=== PATIENT | male | born 1970 | race Caucasian/White ===

== ENCOUNTER 2020-03-26 15:15 | Emergency (ER) | payer MEDICAID, SELFPAY ==
[2020-03-26 15:50] VITALS: BP 113/66; PULSE 65; RESP 20; TEMP 36.9; O2SAT 99
--- NOTE | 2020-03-26 16:23 | ED.GENADULT ---
HPI - General Adult General Chief complaint: Wound/Laceration Stated complaint: abdominal pain Source: patient Mode of arrival: ambulatory Limitations: no limitations History of Present Illness HPI narrative: 50 y/o male. PMH includes: None reported. 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 Client reports to have holding the poles against his side as he was carrying them . He denies acute injury or trauma. Woke up the next day and has had worsening soreness to area since that time. Home remedies have been of sub-therapeutic relief. No fever. No groin or testicular pain. No diffuse abdominal pain,N/V/D. He reports pain is worse with coughing, sneezing, laughing , ect. No additional acute c/o upon PE. Related Data Home Medications Medication Instructions Recorded Confirmed divalproex [Depakote] 250 mg PO DAILY 03/26/20 03/26/20 Allergies Allergy/AdvReac Type Severity Reaction Status Date / Time Penicillins Allergy Severe Dyspnea / Verified 03/26/20 16:12 SOB Review of Systems Review of Systems: Narrative: CONSTITUTIONAL: Denies fever, chills, sweats. EYES: Denies visual changes, redness, discharge. ENT: Denies rhinorrhea, congestion, sore throat, otalgia. CARDIOVASCULAR: Denies chest pain, palpitations, edema. RESPIRATORY: Denies dyspnea, wheezing, cough GASTROINTESTINAL: Denies abdominal pain, nausea, vomiting, diarrhea. GENITOURINARY: Denies dysuria, hematuria, abnormal discharge SKIN: Denies rash or itching. MUSCULOSKELETAL: Denies acute back pain, joint pain, or myalgia. Positive muscle tenderness RT side. NEUROLOGIC: Denies numbness, or focal weakness. PSYCHIATRIC: Denies anxiety or depression. Exam Narrative: Exam Narrative: GENERAL: This is a well-nourished, well-developed patient, in no apparent distress. HEAD: normocephalic, atraumatic. EYES: PERRL. Sclera clear/white. Vision is grossly intact. EARS: External ears normal, auditory canals clear and without drainage, TMs normal without perforation. Hearing grossly intact. NOSE: External nose normal with no obvious nasal discharge, nares without redness, no rhinorrhea. THROAT: Mucous membranes moist, posterior pharynx clear. NECK: Neck supple, non-tender without lymphadenopathy, masses or thyromegaly. CARDIOVASCULAR: Regular rate and rhythm without murmurs, gallops, or rubs. RESPIRATORY: Clear to auscultation. Breath sounds equal bilaterally. No wheezes, rales, or rhonchi. GASTROINTESTINAL: Abdomen soft, nondistended. There is no tenderness or rebound. Bowel sounds are active. No hepato-splenomegaly, or palpable masses. No guarding. I do not appreciate and obvious hernia or deformity. Positive muscle spasm. SKIN: warm, intact with no suspicious lesions or rash, good texture and turgor. I do not appreciate any bruising to lower abdomen. NEURO: awake, alert, and oriented to person, place and time. There were no obvious focal neurologic abnormalities. Steady gait EXTREMITIES: Normal range of motion. No edema. No calf tenderness. Negative Homans sign bilaterally. BACK: Nontender without deformity or crepitance. No flank tenderness. NEURO: Alert and oriented x4, GCS 15. Cranial nerves II through XII grossly intact. No focal neurological deficits. Normal muscle strength and tone. Normal deep tendon reflexes. Negative Babinski, normal finger to nose coordination he had normal heel to wang glide. Speech is clear. Normal gait. Negative Romberg and no pronator drift. Course Course Emergency Course: OP POC, AVS, & medication instructions have been reviewed. His exam is fairly benign, and his pain is reproduced with muscular activity such as sneeze, cough, ect. Will Tx as muscular strain; however, client has been advised that if his pain is to persist or worsen, he will need to proceed immediately to the closest ED for further evaluation and abdominal imaging. He
== END 2020-03-26 16:40 | disposition home or self-care (01) ==
PROVIDERS: Emergency Provider Nurse Practitioner Adult Health
DX: S39.011A Strain of muscle, fascia and tendon of abdomen, initial encounter (principal); X50.0XXA Overexertion from strenuous movement or load, initial encounter
CPT/HCPCS: 99213; G0463

== ENCOUNTER 2020-12-13 13:17 | Emergency (ER) | payer OTHER, SELFPAY ==
--- NOTE | ~2020-12-13 | XR_ITS ---
EXAMINATION: XR wrist RT min 3V DATE: 12/13/2020 13:33 INDICATION: Right wrist pain. TECHNIQUE: 4 views of right wrist were obtained. COMPARISON: Right hand radiographs 01/27/2018 FINDINGS: Bone alignment is normal. No fracture. Joint spaces are well maintained. IMPRESSION: 1. Normal right wrist. Reviewed, dictated and finalized at location A. IMPRESSION: 1. Normal right wrist.
[2020-12-13 13:17] VITALS: BP 110/64; PULSE 63; RESP 16; TEMP 37.1; O2SAT 98
--- NOTE | 2020-12-13 13:33 | ED.UPPEXIN ---
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 Patient has had previous contusion to his right hand in 2018 with no previous fracture. Patient states that pain increases with use of his right wrist and increases with hyperextension, pain radiates to outer aspect of 5th finger and up forearm midway on ulnar region. MD complaint: injury to: right (unsure of specific injury), wrist and hand Onset (ago): week(s) (1) Other Extremity Injury: Right: hand (ulnar side) and wrist (ulnar side) Other injuries: none Handedness: right Place: other (unsure) Severity: moderate Related Data Home Medications Medication Instructions Recorded Confirmed No Home Medications 12/13/20 12/13/20 Allergies Allergy/AdvReac Type Severity Reaction Status Date / Time Penicillins Allergy Severe Dyspnea / Verified 12/13/20 13:37 SOB Review of Systems Review of Systems: CONSTITUTIONAL: Denies fever, chills, or sweats. EYES: Denies visual changes, redness, or discharge. ENT: Denies rhinorrhea, congestion, sore throat, or otalgia. CARDIOVASCULAR: Denies chest pain, palpitations, or edema. RESPIRATORY: Denies cough or dyspnea. GASTROINTESTINAL: Denies abdominal pain, nausea, vomiting, or diarrhea. GENITOURINARY: Denies dysuria or hematuria. SKIN: Denies rash or itching. MUSCULOSKELETAL: Denies back pain,positive for right wrist pain ulnar aspect, or myalgia. NEUROLOGIC: Denies headache, numbness, or weakness. PSYCHIATRIC: Denies anxiety or depression. All systems reviewed & are unremarkable except as noted in HPI and below PMFSH Past Medical History Medical History (Updated 12/13/20 @ 15:11 by Miranda Persaud NP) Gout Psoriasis Surgical History Surgical History (Updated 12/13/20 @ 15:32 by Miranda Persaud NP) No history of previous surgery Family History Family History (Updated 12/13/20 @ 15:31 by Miranda Persaud NP) Other No significant family history Social History Social History (Updated 12/13/20 @ 13:39 by Miranda Persaud NP) Smoking packs per day: 1 Smoking cigarettes per day: 20.0 Years smoked: 30 Smoking pack-years: 30.00 Smoking status: Current every day smoker Comments At time of signature, agree with nursing past medical, surgical, social and family history. There is no relevant family history pertinent to the presenting complaint Exam Narrative: GENERAL: Well-appearing, well-nourished, and in no acute distress. HEAD: Normocephalic, atraumatic. EYES: PERRLA and EOMI. ENT: Nares clear, no rhinorrhea or epistaxis. Mucous membranes moist. NECK: Supple. no lymphadenopathy CHEST: Clear to auscultation. No respiratory distress.SAO2 98% on room air HEART: Regular rate and rhythm. No murmur heard. Normal peripheral pulses. ABDOMEN: Soft, nontender, nondistended, normal active bowel sounds. EXTREMITIES: Painful range of motion to right wrist area especially with hyperextension of wrist area, Patient has pain to outside area of 5th finger right hand and some radiation of pain up outer right forearm.. No acute edema. Pulses strong to the left radial area, states some initial tingling to 5th finger right hand which has resolved, nail beds amber briskly. SKIN: Warm, dry, no rash. NEURO: No focal deficits. Alert and oriented x3. Course Vital Signs Vital signs: Vital Signs Temperature 37.1 C 12/13/20 13:17 Pulse Rate 63 12/13/20 13:17 Respiratory Rate 16 12/13/20 13:17 Blood Pres
[2020-12-13 14:28] VITALS: BP 110/64; PULSE 63; RESP 16; TEMP 37.1; O2SAT 98
== END 2020-12-13 14:00 | disposition home or self-care (01) ==
PROVIDERS: Emergency Provider Registered Nurse; PCP Nurse Practitioner Family
DX: M77.8 Other enthesopathies, not elsewhere classified (principal); F17.210 Nicotine dependence, cigarettes, uncomplicated; M10.9 Gout, unspecified; L40.9 Psoriasis, unspecified
CPT/HCPCS: 73110; 99213; G0463

== ENCOUNTER 2021-03-04 14:03 | Emergency (ER) | payer OTHER, SELFPAY ==
--- NOTE | ~2021-03-04 | XR_ITS ---
EXAMINATION: XR lumbar spine 2-3V EXAM DATE: 03/04/2021 14:44 INDICATION: Low back pain, right hip pain for 4 days. No known recent injury. TECHNIQUE: Lumber spine frontal, lateral, lateral L5-S1 projections for interpretation. There is no prior study for comparison. FINDINGS: There is mild lumbar dextrocurvature, could be positional or scoliosis. Mild to moderate l umbar disc disease L2-3, mild at the other lumbar levels. There is mild to moderate lumbar facet arth ropathy. Sacrum, sacroiliac joints, sacral arcuate lines are intact. Paraspinal soft tissue is unrema rkable. There are no bony erosions identified. There are no acute fractures identified. IMPRESSION: Mild to moderate lumbar spondylosis Reviewed, dictated and finalized at location A.
--- NOTE | ~2021-03-04 | XR_ITS ---
EXAMINATION: XR hip RT min 2V DATE: 03/04/2021 14:44 INDICATION: 4 days of nontraumatic right hip pain TECHNIQUE: Anteroposterior and frog-leg lateral views of the right hip were obtained. COMPARISON: None. FINDINGS: Alignment is normal. No fracture. Sacral arches are intact. Right hip and bilateral sacroiliac joint spaces are normal. No suspected avascular necrosis. Soft tissues are unremarkable. IMPRESSION: 1. Negative right hip radiographs. Reviewed, dictated and finalized at location A.
--- NOTE | 2021-03-04 14:09 | ED.BACK ---
HPI - Back Pain/Injury General Chief Complaint: Back Pain/Injury Stated Complaint: Lower Back Pain Time Seen by Provider: 03/04/21 14:09 Source: patient and RN notes reviewed History of Present Illness HPI Narrative: Patient is a 51-year-old male who presents the urgent care with complaints of low back pain that radiates around to the right hip. Patient states is been hurting since Thursday. 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 Patient has been taking a muscle relaxer and using ice. Denies of any changes in bladder or bowel habits. No other acute complaints. No acute distress noted. Patient read the plan of care. Some parts of this dictation were generated by voice recognition software and may contain typographical and/or grammatical inaccuracies. Related Data Allergies Allergy/AdvReac Type Severity Reaction Status Date / Time Penicillins Allergy Severe Dyspnea / Verified 03/04/21 14:21 SOB Review of Systems Review of Systems: CONSTITUTIONAL: Denies fever, chills, or sweats. EYES: Denies visual changes, redness, or discharge. ENT: Denies rhinorrhea, congestion, sore throat, or otalgia. CARDIOVASCULAR: Denies chest pain, palpitations, or edema. RESPIRATORY: Denies cough or dyspnea. GASTROINTESTINAL: Denies abdominal pain, nausea, vomiting, or diarrhea. GENITOURINARY: Denies dysuria or hematuria. SKIN: Denies rash or itching. MUSCULOSKELETAL: Reports of right-sided low back pain radiating around the right hip NEUROLOGIC: Denies headache, numbness, or weakness. All other systems reviewed are negative, except as documented in HPI. [facility] Past Medical History Medical History (Updated 03/04/21 @ 14:59 by JOSE JUAN Chase) Gout Psoriasis Surgical History Surgical History (Updated 12/13/20 @ 15:32 by Miranda Persaud NP) No history of previous surgery Family History Family History (Updated 12/13/20 @ 15:31 by Miranda Persaud NP) Other No significant family history Social History Social History (Updated 12/13/20 @ 13:39 by Miranda Persaud NP) Smoking packs per day: 1 Smoking cigarettes per day: 20.0 Years smoked: 30 Smoking pack-years: 30.00 Smoking status: Current every day smoker Comments At the time of my signature, I reviewed and agree with the nursing past medical, surgical, social, and family history. There is no relevant family history pertinent to the patient complaint. Exam Narrative: GENERAL: This is a well-nourished, well-developed patient, in no apparent distress. HEAD: normocephalic, atraumatic. EYES: PERRL. Sclera clear/white. Vision is grossly intact. EARS: External ears normal NOSE: External nose normal with no obvious nasal discharge, nares without redness, no rhinorrhea. THROAT: Mucous membranes moist NECK: Neck supple CARDIOVASCULAR: Regular rate and rhythm without murmurs, gallops, or rubs. RESPIRATORY: Clear to auscultation. Breath sounds equal bilaterally. No wheezes, rales, or rhonchi. SKIN: warm, intact with no suspicious lesions or rash, good texture and turgor. NEURO: awake, alert, and oriented to person, place and time. There were no obvious focal neurologic abnormalities. EXTREMITIES: No clubbing, cyanosis, or edema. BACK: Positive right SLE. Moderate tenderness to right piriformis region and diffuse right lumbar tenderness without crepitus Course Vital Signs Vital signs: Vital Signs Temperature 98.1 F 03/04/21 14:10 Pulse Rate 85 03/04/21 14:10 Respiratory Rate 18 03/04/21 14:10 Blood Pressure 122/75 03/04/21 14:10 Pulse Oximetry 98 03/04/21 14:10 Temperature 98.1 F 03/04/21 14:10 Pulse Rate 85 03/04/21 14:10 Respiratory Rate 18 03/04/21 14:10 Blood Pressure 122/75 03/04/21 14:10 Pulse Oximetry 98 03/04/21 14:10 Reviewed MDM - Back Pain/Injury MDM Narrative Medical decision making narrative: Reviewed x-ray results with the patient. Patient is aware that there is a slight curv
[2021-03-04 14:10] VITALS: BP 122/75; PULSE 85; RESP 18; TEMP 36.7; O2SAT 98
== END 2021-03-04 15:10 | disposition home or self-care (01) ==
PROVIDERS: Emergency Provider Nurse Practitioner Family
DX: S39.012A Strain of muscle, fascia and tendon of lower back, initial encounter (principal); X58.XXXA Exposure to other specified factors, initial encounter; M47.816 Spondylosis without myelopathy or radiculopathy, lumbar region; M10.9 Gout, unspecified; L40.9 Psoriasis, unspecified; F17.210 Nicotine dependence, cigarettes, uncomplicated
CPT/HCPCS: 72100; 73502; 99214; G0463

== ENCOUNTER 2022-05-13 12:21 | Emergency (ER) | payer OTHER, SELFPAY ==
--- NOTE | ~2022-05-13 | XR_ITS ---
EXAMINATION: XR thoracic spine 3V DATE: 05/13/2022 13:36 INDICATION: Back injury and pain. TECHNIQUE: 3 views of thoracic spine on 5 radiographs were obtained. COMPARISON: None. FINDINGS: There is 11 degrees dextroscoliosis of thoracic spine. Vertebral body heights and intervert ebral disc heights are normal. There are endplate osteophytes at most levels. IMPRESSION: 1. Mild thoracic spondylosis. 2. Thoracic dextroscoliosis. Reviewed, dictated and finalized at location A. 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
--- NOTE | ~2022-05-13 | XR_ITS ---
EXAMINATION: XR ribs RT 2V DATE: 05/13/2022 13:36 INDICATION: Right chest injury and pain. TECHNIQUE: 2 views of the right ribs on 3 radiographs were obtained. COMPARISON: None. FINDINGS: There is mild atelectasis at right lung base. No pleural effusion or pneumothorax. The hear t size is normal. There is no rib fracture. IMPRESSION: 1. No rib fracture. Reviewed, dictated and finalized at location A. 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 No rib fracture.
[2022-05-13 12:26] VITALS: BP 144/73; PULSE 74; RESP 14; TEMP 37.1; O2SAT 100
--- NOTE | 2022-05-13 13:06 | ED.BACK ---
HPI - Back Pain/Injury General Chief Complaint: Back Pain/Injury Stated Complaint: lower back injury Time Seen by Provider: 05/13/22 13:06 Source: patient and RN notes reviewed Mode of arrival: ambulatory Limitations: no limitations History of Present Illness HPI Narrative: 52-year-old male presents with concern for back pain after a fall. He reports 4 days ago he fell and hit his back on a truck bumper. He reports since then he has been having mid right back pain. He reports history of back pain on the right lower back. He reports a feeling of pressure in his back. He reports a feeling of having to have a bowel movement without actually needing to have a bowel movement. He denies perianal anesthesia, loss of bowel or bladder function. He denies abdominal pain, fever. He reports he has been taking 800 mg ibuprofen every 4 hours without relief MD elicited complaint: back pain Related Data Allergies Allergy/AdvReac Type Severity Reaction Status Date / Time Penicillins Allergy Severe Dyspnea / Verified 03/04/21 14:21 SOB Review of Systems Review of Systems: CONSTITUTIONAL: Denies malaise, chills, sweats, or fever. CARDIOVASCULAR: Denies chest pain, palpitations, or edema. RESPIRATORY: Denies cough or dyspnea. GASTROINTESTINAL: Denies abdominal pain, nausea, vomiting, diarrhea, loss of bowel function GENITOURINARY: Denies dysuria, hematuria, frequency, loss of bladder function. SKIN: Denies rash or itching. MUSCULOSKELETAL: Reports right mid back pain NEUROLOGIC: Denies numbness, weakness, or headache. All systems reviewed & are unremarkable except as noted in HPI and below PMFSH Past Medical History Medical History (Updated 05/13/22 @ 13:46 by Cinthia Frye NP) Gout Psoriasis Surgical History Surgical History (Updated 12/13/20 @ 15:32 by Miranda Persaud NP) No history of previous surgery Family History Family History (Updated 12/13/20 @ 15:31 by Miranda Persaud NP) Other No significant family history Social History Social History (Updated 12/13/20 @ 13:39 by Miranda Persaud NP) Smoking packs per day: 1 Smoking cigarettes per day: 20.0 Years smoked: 30 Smoking pack-years: 30.00 Smoking status: Current every day smoker Comments At time of signature, agree with nursing past medical, surgical, social and family history. There is no relevant family history pertinent to the presenting complaint Exam Narrative: GENERAL: Well-appearing, well-nourished, and in no acute distress. HEAD: Normocephalic, atraumatic. EYES: PERRLA and EOMI. NECK: Supple. No lymphadenopathy. CHEST: Clear to auscultation. No respiratory distress. HEART: Regular rate and rhythm. Distal pulses palpable and equal, cap refill <3 seconds ABDOMEN: Soft, nontender, nondistended, normal active bowel sounds, no palpable or pulsatile masses. No CVA tenderness MUSCULOSKELETAL: Normal range of motion and strength in all extremities; 5/5 strength with last hip flexion and extension, 3/5 strength right hip flexion extension. 5/5 strength bilateral knee flexion and extension, plantar flexion and extension. Normal sensation in dermatomal distributions with sensitivity to light touch and pain. No midline back tenderness to palpation. No paraspinal tenderness. Transfers from lying to sitting to standing. SKIN: Warm, dry, no rash. No ecchymosis, erythema, open wounds to back. NEURO: No focal deficits. Alert and oriented x3. Reflexes intact. Normal gait. PSYCH: Normal mood and affect Course Course Emergency Course: Patient is aware of diagnosis, understands and agrees to treatment plan. Anticipatory guidance given. Patient agrees to follow-up as directed and is aware of reasons to seek care at the emergency department. Portions of this record may have been created with voice recognition software Level of Care: Express Care Visit Vital Signs Vital signs: Vital Signs Temperature 98.8 F 05/13/22 12:26 Pulse Rate 7
== END 2022-05-13 13:56 | disposition home or self-care (01) ==
PROVIDERS: Emergency Provider Nurse Practitioner; PCP Nurse Practitioner Family
DX: M54.6 Pain in thoracic spine (principal); F17.210 Nicotine dependence, cigarettes, uncomplicated; M10.9 Gout, unspecified
CPT/HCPCS: 71100; 72072; 99214; G0463

== ENCOUNTER 2024-02-27 15:47 | Emergency (ER) | payer OTHER, SELFPAY ==
--- NOTE | ~2024-02-27 | CT_ITS ---
EXAMINATION: CTA chest PE protocol DATE: 02/27/2024 17:19 INDICATION: Intermittent left-sided chest pain for 2 to 3 weeks TECHNIQUE: Computed tomography angiography (CTA) of the chest was performed with 100 mL Omnipaque-350 intravenous contrast timed to evaluate the pulmonary arteries. Coronal maximum intensity projection 3D-reconstructions were created by the technologist. Automated exposure control and iterative reconst ruction technique were employed. Exam dose: 402.46 mGy-cm total exam DLP. COMPARISON: None. FINDINGS: There is diagnostic contrast enhancement of the pulmonary arteries and no evidence of pulmo nary embolism. No thoracic aortic aneurysm or dissection. Normal heart size. No pericardial or pleural effusion. No hilar or mediastinal mass lesion or lymphad enopathy. Normal morphology of the adrenal glands. No pulmonary infiltrate or consolidation or suspicious pulmonary mass lesion is detected. No suspicious osteolytic or osteoblastic lesions. IMPRESSION: No evidence of pulmonary embolism Reviewed, dictated and finalized at [facility] Reviewed, dictated and finalized at [facility].
--- NOTE | ~2024-02-27 | XR_ITS ---
XR chest 2V DATE: 02/27/2024 16:16 INDICATION: Intermittent left chest pain for 2 to 3 weeks TECHNIQUE: 3 views COMPARISON: 05/13/2022 right ribs FINDINGS: Normal heart size. No hilar or mediastinal enlargement. Approximately 9.5 mm opacity is noted overlying the right lower lung. The lung spear otherwise are clear. No infiltrate or consolidation, pleural effusion or pulmonary va scular congestion or pneumothorax is detected. Normal heart size. No hilar or mediastinal enlargement. Mild thoracolumbar dextroscoliosis and degenerative spurring. IMPRESSION: 9.5 mm opacity overlying right lower lung; lung mass is suspected. CT thorax is recommend ed Otherwise no active cardiopulmonary disease Reviewed, dictated and finalized at [facility]. IMPRESSION: 9.5 mm opacity overlying right lower lung; lung mass is suspected. CT thorax is recommended Otherwise no active cardiopulmonary disease
--- NOTE | 2024-02-27 15:48 | ECG_ITS ---
Test Date: 2024-02-27 15:56:41 Measurements Intervals [place] Rate: 71 P: 56 NH: 194 QRS: 25 QRSD: 94 T: 30 QT: 374 QTc: 408 Interpretive Statements SINUS RHYTHM NORMAL ECG No previous ECG available for comparison Electronically Signed On 02-28-2024 13:06:05 CDT by Dimas Rashid M.D.
[2024-02-27 15:49] VITALS: BP 130/81; PULSE 77; RESP 14; TEMP 36.9; O2SAT 99
[2024-02-27 16:06] LABS: Basophils Percent Auto 0.3 % (0.2-1.2); Eosinophils Absolute Auto 0.1 K/mm3 (0-0.3); Eosinophils Percent Auto 1.4 % (0-4.4); Hematocrit 42.7 % (42.0-52.0); Immature Granulocyte Absolute 0.01 K/mm3 (0.00-0.031); Immature Granulocyte Percent A 0.1 % (0-0.5); Lymphocytes Absolute Auto 1.75 K/mm3 (0.9-3.2); Mean Corpuscular HGB Conc 35.1 g/dl (32-36); Mean Corpuscular Hemoglobin 31.7 pg (26-34); Mean Corpuscular Volume 90.3 fl (80-100); Mean Platelet Volume 9.8 fl (7.4-10.4); Monocytes Absolute Auto 0.8 K/mm3 (0.1-0.6); Monocytes Percent Auto 10.1 % (2.6-8.5); Neutrophils Absolute Auto 5.3 K/mm3 (1.3-6.7); Neutrophils Percent Auto 66.1 % (45.5-73.1); Platelet Count Result 257 k/mm3 (150-375); Red Blood Count 4.73 M/mm3 (4.6-6.20); Red Cell Distribution Width 12.4 % (11.5-14.5)
[2024-02-27 16:17] LABS: Partial Thromboplastin Time 26.4 Seconds (22.3-36.8); Prothrombin Time 13.4 Seconds (11.1-14.7)
[2024-02-27] MEDS: ASPIRIN 81 MG CHEWABLE TABLET 324 MG PO (16:19)
[2024-02-27 16:25] LABS: Alanine Aminotransferase 24 U/L (6-50); Albumin Level 4.5 g/dL (3.5-5.1); Alkaline Phosphatase 76 U/L (38-126); Anion Gap 9 mmol/L (4-12); Aspartate Amino Transferase 26 U/L (17-59); Bilirubin,Total 0.6 mg/dL (0.2-1.3); Blood Urea Nitrogen 15 mg/dL (9-20); Calcium 9.6 mg/dL (8.4-10.2); Carbon Dioxide 23 mmol/L (22-30); Chloride 107 mmol/L (98-107); Estimated CRCL calculation 109 ml/min; Estimated Glomerular Filt Rate > 60; Glucose 168 mg/dL (65-110); Lipase 47 U/L (23-300); Potassium 3.4 mmol/L (3.4-5.0); Sodium 139 mmol/L (137-145)
--- NOTE | 2024-02-27 16:27 | ED.CHESTPAIN ---
HPI - Chest Pain General Chief Complaint: Chest Pain Stated Complaint: chest pain Time Seen by Provider: 02/27/24 16:06 Source: patient Mode of arrival: ambulatory Limitations: no limitations History of Present Illness HPI narrative: This is a 54-year-old male who presents to the ED for chief complaint of chest pain ongoing intermittently for the past several months. Reports increasing shortness breath over the past week or so. He does report history of emphysema and long-time smoking history. States that the chest pain has primarily been on the left side and will come and goes at random. Denies worsening with exertion or improvement with rest. He does note that he gets associated lightheadedness, bilateral foot tingling with the chest pain comes on. states that he is undergoing significant stress between family and his job. Denies syncope, vomiting abdominal pain, back pain. Related Data Allergies Allergy/AdvReac Type Severity Reaction Status Date / Time Penicillins Allergy Severe Dyspnea / Verified 02/27/24 16:09 SOB Review of Systems Review of Systems: All systems as dictated in [facility] Past Medical History Medical History (Updated 02/28/24 @ 00:00 by Jordy Wang) Gout Psoriasis Surgical History Surgical History (Updated 12/13/20 @ 15:32 by Miranda Persaud NP) No history of previous surgery Family History Family History (Updated 12/13/20 @ 15:31 by Miranda Persaud NP) Other No significant family history Social History Social History (Updated 12/13/20 @ 13:39 by Miranda Persaud NP) Smoking packs per day: 1 Smoking cigarettes per day: 20.0 Years smoked: 30 Smoking pack-years: 30.00 Smoking status: Current every day smoker Exam Narrative: GENERAL: Well-appearing, well-nourished, and in no acute distress. HEAD: Normocephalic, atraumatic. EYES: PERRLA and EOMI. ENT: Nares clear, no rhinorrhea or epistaxis. Mucous membranes moist. Oropharynx without tonsillar hypertrophy exudate or other lesions. NECK: Supple. No adenopathy or masses. CHEST: No respiratory distress. Clear to auscultation. No wheezes rales or rhonchi HEART: Regular rate and rhythm. No murmur heard. Normal peripheral pulses. ABDOMEN: Soft, nontender, nondistended, normal active bowel sounds. MSK: Normal range of motion. No edema. SKIN: Warm, dry, no rash. NEURO: Alert and oriented x4. No focal deficits. PSYCH: Normal mood and affect. Course Vital Signs Vital signs: Vital Signs Temperature 98.4 F 02/27/24 15:49 Pulse Rate 77 02/27/24 15:49 Respiratory Rate 14 02/27/24 15:49 Blood Pressure 130/81 02/27/24 15:49 Pulse Oximetry 99 02/27/24 15:49 Oxygen Delivery Room Air 02/27/24 15:49 Temperature 98.1 F 02/27/24 19:36 Pulse Rate 67 02/27/24 19:36 Respiratory Rate 18 02/27/24 19:36 Blood Pressure 139/90 02/27/24 19:36 Pulse Oximetry 99 02/27/24 19:36 Oxygen Delivery Room Air 02/27/24 16:20 MDM - Chest Pain MDM Narrative Medical decision making narrative: This is a 54 yo male who presents to the ED for intermittent chest pain for the past several weeks. Vitals are normal. Exam is benign overall. Lab work showing elevated d dimer of 0.73, but is otherwise grossly unremarkable. BNP, troponin are normal. Serial troponins are negative. Chest x-ray: IMPRESSION: 9.5 mm opacity overlying right lower lung; lung mass is suspected. CT thorax is recommended Otherwise no active cardiopulmonary disease. CTA chest: IMPRESSION: No evidence of pulmonary embolism Presentation consistent with atypical chest pain. Heart score 2 and I have low suspicion for acute coronary syndrome. Likely due to anxiety with recent increased life stressors. Patient is well-appearing hand asymptomatic on multiple re-evaluations. I did inform him that there was a possible new lung mass on the right lung. He will follow-up closely with his PCP on this issue. Patient will be discharged in stable condition. Supportive measures discussed and return precautions given. Patient is understanding and agreeable with plan for discharge with PCP follow-up. Lab Data 02/27/24 16:01 02/27/24 16:01 Labs: Lab Results 02/27/24 02/27/24 02/27/24 Range/Units 16:01 16:01 18:58 WBC 8.0 (4.5-10.0) K/mm3 RBC 4.73 (4.6-6.20) M/mm3 Hgb 15.0 (14.0-18.0) g/dL Hct 42.7 (42.0-52.0) % MCV 90.3 (80-100) fl MCH 31.7 (26-34) pg MCHC 35.1 (32-36) g/dl RDW 12.4 (11.5-14.5) % Plt Count 257 (150-375) k/mm3 MPV 9.8 (7.4-10.4) fl Immature Gran % (Auto) 0.1 (0-0.5) % Neut % (Auto) 66.1 (45.5-73.1) % Lymph % (Auto) 22.0 (18.3-44.2) % Brooke % (Auto) 10.1 H (2.6-8.5) % Eos % (Auto) 1.4 (0-4.4) % Baso % (Auto) 0.3 (0.2-1.2) % Lymph # (Auto) 1.75 (0.9-3.2) K/mm3 Brooke # (Auto) 0.8 H (0.1-0.6) K/mm3 Eos # (Auto) 0.1 (0-0.3) K/mm3 Baso # (Auto) 0.0 (0.0-0.1) K/mm3 Abs Immat Gran (auto) 0.01 (0.00-0.031) K/mm3 Absolute Neuts (auto) 5.3 (1.3-6.7) K/mm3 Absolute Nucleated RBC 0.000 (0.0-0.012) K/mm3 Nucleated RBC % 0.0 (0.0-0.2) % PT 13.4 (11.1-14.7) Seconds INR 1.0 APTT 26.4 (22.3-36.8) Seconds D-Dimer 0.73 H (<0.48) ug/mL Sodium 139 (137-145) mmol/L Potassium 3.4 (3.4-5.0) mmol/L Chloride 107 (98-107) mmol/L Carbon Dioxide 23 (22-30) mmol/L Anion Gap 9 (4-12) mmol/L BUN 15 (9-20) mg/dL Creatinine 0.80 (0.7-1.3) mg/dL Estim Creat Clear Calc 109 ml/min Estimated GFR > 60 (59 - ) Glucose 168 H (65-110) mg/dL Calcium 9.6 (8.4-10.2) mg/dL Total Bilirubin 0.6 (0.2-1.3) mg/dL AST 26 (17-59) U/L ALT 24 (6-50) U/L Alkaline Phosphatase 76 (38-126) U/L Troponin I < 0.012 < 0.012 (0.000-0.034) ng/mL NT-Pro-B Natriuret Pep 65 Cancelled (19.9-100) pg/mL Total Protein 8.0 (6.3-8.2) g/dL Albumin 4.5 (3.5-5.1) g/dL Lipase 47 (23-300) U/L ECG Data EKG #1: ECG completion date: 02/27/24 ECG completion time: 15:56 Prior ECG tracings: not available for review Interpretation: Sinus rhythm Rate 71 Normal QRS Normal QTC no acute ischemic findings Discharge Plan Discharge Clinical Impression: Atypical chest pain Patient Disposition: Home, Self-Care Condition: Stable Instructions: Antibiotic Form Additional Instructions: your exam and imaging today are reassuring. However there is a possible new 9.5 mm nodule on the right side. Please follow-up very closely with your PCP on this issue. If you have any new or worsening symptoms please return to the ER for further evaluation. Prescriptions: No Action prednisone 20 mg tablet 40 mg PO DAILY 5 Days Qty: 10 0RF tramadol 50 mg tablet 50 mg PO Q6H PRN (Reason: pain) Qty: 10 0RF methocarbamol 750 mg tablet 750 mg PO TID PRN (Reason: muscle spasm) Qty: 30 0RF Follow-up/Referrals: Simona,Latricia Boateng APN [Non-Staff] - Time of Disposition: 19:23 Quality HEART score for chest pain patients History: slightly suspicious ECG: normal Age: > 45 and < 65 years Risk factors: 1 or 2 risk factors Troponin: < or = to 1x normal limit Heart score: 2
[2024-02-27 16:35] LABS: D Dimer 0.73 ug/mL (<0.48)
[2024-02-27 16:37] LABS: Troponin I < 0.012 ng/mL (0.000-0.034)
[2024-02-27 16:59] LABS: NT Pro B Type Natriuretic Pept 65 pg/mL (19.9-100)
[2024-02-27 18:14] VITALS: BP 130/71; PULSE 70; RESP 24; O2SAT 99
--- NOTE | 2024-02-27 18:48 | ECG_ITS ---
Test Date: 2024-02-27 18:49:30 Measurements Intervals [place] Rate: 70 P: 34 CO: 215 QRS: 5 QRSD: 96 T: 13 QT: 375 QTc: 405 Interpretive Statements SINUS RHYTHM WITH FIRST DEGREE AV BLOCK ABNORMAL ECG Compared to ECG 02/27/2024 15:56:41 First degree AV block now present Electronically Signed On 02-28-2024 13:06:54 CDT by Dimas Rashid M.D.
[2024-02-27 19:26] LABS: Troponin I < 0.012 ng/mL (0.000-0.034)
[2024-02-27 19:36] VITALS: BP 139/90; PULSE 67; RESP 18; TEMP 36.7; O2SAT 99
== END 2024-02-27 19:45 | disposition home or self-care (01) ==
PROVIDERS: Emergency Medicine; Emergency Provider Physician Assistant
DX: R07.89 Other chest pain (principal); Z87.891 Personal history of nicotine dependence
CPT/HCPCS: 36415; 71046; 71275; 80053; 83690; 83880; 84484; 85025; 85380; 85610; 85730; 93005; 99284; A9270; Q9967